=== PATIENT | male | born 1965 | race Caucasian/White ===

== ENCOUNTER 2024-04-17 12:47 | Emergency (ER) | payer BC, SELFPAY ==
[2024-04-17 12:54] VITALS: BP 130/95
[2024-04-17 13:14] LABS: % Basophils 0.5 % (0-2); % Eosinophils 0.8 % (0-6); % Immature Granulocytes 0.1 % (0-0.5); % Lymphocytes 28.4 % (20.5-51.1); % Monocytes 4.5 % (1.7-9.3); % Neutrophils 65.7 % (42.2-75.2); Absolute Eosinophils 0.1 10^3/uL (0-0.7); Absolute Lymphocytes 2.4 10^3/uL (1.2-3.4); Absolute Monocytes 0.4 10^3/uL (0.1-0.6); Absolute Neutrophils 5.5 10^3/uL (1.4-6.5); Hematocrit 43.6 % (39.0-52.0); Hemoglobin 15.2 g/dL (13.0-18.0); Mean Corp Hgb Conc. 34.9 g/dL (33.0-37.0); Mean Corpuscular Hgb 31.3 pg (27.0-31.0); Mean Corpuscular Volume 89.9 fL (80.0-94.0); Mean Platelet Volume 9.7 fL (7.4-10.4); Nucleated Red Blood Cells % 0 % (-); Platelet Count 283 10^3/uL (130-400); Red Blood Cell Count 4.85 10^6/uL (4.70-6.10); Red Cell Dist. Width 12.2 % (11.5-14.5); White Blood Cell Count 8.4 10^3/uL (4.8-10.8)
[2024-04-17 13:28] LABS: ALT (SGPT) 24 U/L (0-50); AST (SGOT) 26 U/L (17-59); Albumin 4.7 g/dl (3.5-5.0); Alkaline Phosphatase 60 U/L (38-126); Blood Urea Nitrogen 17 mg/dl (9-20); Calcium 9.1 mg/dl (8.4-10.2); Carbon Dioxide 27 mmol/L (22-30); Chloride 101 mmol/L (98-107); Glucose 145 mg/dl (70-99); Potassium 3.7 mmol/L (3.5-5.1); Sodium 137 mmol/L (135-145); Total Bilirubin 0.9 mg/dl (0.2-1.3); Total Protein 7.3 g/dl (6.3-8.2); eGFR > 60.00
[2024-04-17 13:38] LABS: Troponin I < 0.012 ng/ml
[2024-04-17 17:13] VITALS: BMI 25.7
[2024-04-17 17:16] VITALS: BP 116/69
--- NOTE | 2024-04-21 12:09 | ED.GENMED ---
History of Present Illness
General
Chief Complaint: Chest Pain
Source: patient
Exam Limitations: none
Time Seen by Provider: 04/17/24 17:13
Nursing documentation reviewed up to this point in time: agreed with
History of Present Illness
History of Present Illness:
This is a 58-year-old male who presents emergency department today with concerns of chest pain starting a week ago. Patient states that he has had generalized cold and flulike symptoms for the past week and states that they are generally getting
better but he did note a persistent cough. He feels like the pain started after fits of coughing. He notes that some positions elicit palpable spasm over the chest wall. He has no associated shortness of breath. He feels like he notices the pain
more when he is sitting forward. He states that it comes and goes and is not constant. It is not exertional. He is no family history of cardiac disease. He has no personal history of cardiac disease. He denies any dizziness or lightheadedness.
He does not take any medications daily.
Review of Systems
Review of Systems
All Other Systems: ROS reviewed and negative except as documented in HPI and ROS
Phy Exam
Physical Exam
Physical Exam:
General: Patient is well appearing and in no acute distress; non-toxic
Skin: Warm and dry, no rashes or lesions
Head: Normocephalic, atraumatic
Eyes: Sclera non-icteric. EOMs intact.
Cardiac: Regular rate and rhythm, no murmurs, no tenderness to palpation of the external chest wall
Peripheral Vascular: No lower extremity swelling or edema, 2+ radial pulses bilaterally
Pulm: Normal respiratory effort, no wheezes, rales, or rhonchi
Musculoskeletal: No chest pain with range of motion of bilateral upper extremities. 5/5 strength of bilateral upper extremities.
Neuro: CN II-XII intact, no focal neurologic deficits.
Psychiatric: Appropriate mood and affect.
Scores
Heart Score for Chest Pain Patients
STEMI patient?: No
History: Slightly or Non-Suspicious
ECG: Normal
Age: >45 - <65 years
Risk Factors: No Risk Factors
Troponin: </= Normal Limit
Heart Score for Chest Pain Patients: 1
Heart Score Risk: 2.5% MACE over next 6 weeks
Course
Orders/Labs/Results
Orders:
Orders
04/17/24 12:48
Electrocardiogram (*1) Urgent
Reason for Study: Chest Pain
EKG- Treatment ONCE
04/17/24 13:02
Complete Blood Count/With Diff Urgent
Comprehensive Metabolic Panel Urgent
Troponin I Urgent
04/17/24 13:26
CR Chest - 2 Views Urgent
Comment:
Reason For Exam: CP
Abnormal Lab Results
04/17/24
13:02
MCH 31.3 H pg
(27.0-31.0)
Glucose 145 H mg/dl
(70-99)
04/17/24 13:02
04/17/24 13:02
Vital Signs
Initial and Last Documented VS:
Initial Vital Signs
Temp Pulse Resp BP Pulse Ox
98.3 F 80 16 130/95 98
04/17/24 12:54 04/17/24 12:54 04/17/24 12:54 04/17/24 12:54 04/17/24 12:54
Last Documented Vital Signs
Temp Pulse Resp BP Pulse Ox
98.3 F 70 17 116/69 96
04/17/24 12:54 04/17/24 17:45 04/17/24 17:45 04/17/24 17:16 04/17/24 17:45
MDM/Problems Addressed
Differential Diagnosis Includes:
chest wall strain, ACS, pericarditis, myocarditis, costochondritis, pneumonia
MDM/Problems Addressed:
58-year-old male with no past medical history presents to the emergency department today with concerns of atypical chest pain. The pain will come and go at random. It is non-positional, non-pleuritic. It resolved in the emergency department without
intervention. His EKG shows sinus rhythm with PACs no ischemia troponin undetectable. CBC and CMP unremarkable. CXR shows no evidence of active cardiopulmonary disease. Suspect possible pericarditis vs chest wall strain from coughing fits.
Recommended cardiology follow up and ibuprofen as needed for pain. Patient stable for discharge
Chronic conditions affecting care:
n/a
Acute Exacerbation and/or Progression of Chronic Illness:
n/a
*Pulse Oximetry
Patient hypoxic: no
*EKG
Interpreted by ED Provider?: Yes
EKG Intrepretation Date: 04/21/24
Interpretation: normal
Comparison EKG: no comparison EKG present
Heart Rate: 73
Rate: normal
Rhythm: sinus
QRS Pattern: normal QRS
*Critical Care Note
Total Time (30-74mins, 75-104mins- exclusive of procedures): Not Applicable
Data Reviewed
Review of Other/Old Records Reveals: Records (No previous ER physician documentation to review, no discharge summaries)
Source: patient and records
Patient Management
Escalation/DeEscalation of care consider admission/obs:
case reviewed with my attending
patient stable for discharge
ED Attending Note
-
Portions of this chart may have been created with voice recognition software.� Occasional wrong word or��sound alike� substitutions may have occurred due to the inherent limitations of voice recognition software.
Discharge Plan
Departure
Patient Disposition: Home (Routine Discharge)
Date of Disposition: 04/17/24
Time of Disposition: 17:35
Patient with high blood pressure during this ER visit?: Yes
Condition: Good
Discharge Problem:
Atypical chest pain
Instructions: Chest pain, BLOOD PRESSURE
Referrals:
Nathan Goldberg MD [Active] - Call in 1-3 days for appt
Activity Restrictions/Additional Instructions:
Please call the attached number to schedule an appointment with cardiology.
Please follow up with your primary care provider.
Your EKG demonstrates sinus rhythm with no concerning findings. Your troponin blood test was undetectable. Your chest x-ray was normal.
PLEASE RETURN TO THE EMERGENCY DEPARTMENT SHOULD YOU EXPERIENCE AN ACUTE WORSENING OF YOUR SYMPTOMS, SHORTNESS OF BREATH, NECK PAIN, DIZZINESS, WEAKNESS IN ONE-SIDED BODY VERSUS OTHER, SYNCOPAL EPISODES, OR ANY OTHER SIGNS OR SYMPTOMS WORRISOME TO
YOU.
Interventions
Interventions:
*Risk Screen - Suicide Last Done: 04/17/24 12:54
*General Assessment Last Done: 04/17/24 17:13
*Neglect/Abuse Screening Last Done: 04/17/24 12:54
ED- Fall Risk Assessment Last Done: 04/17/24 17:13
*ED COVID-19 Vaccine History Last Done: 04/17/24 17:13
*Nursing Disposition Last Done: 04/17/24 17:59
ED- Cardiac Assessment Last Done: 04/17/24 17:19
Discharge Date and Time
Discharge Date/Time: 04/17/24 18:00
Print Language: ESTONIAN
== END 2024-04-17 18:00 | disposition home or self-care (01) ==
LOC: EMR 12:47
PROVIDERS: Emergency Medicine; EMERGENCY PHYSICIAN Student in an Organized Health Care Education/Training Program
DX: R07.89 Other chest pain (principal)
CPT/HCPCS: 99283; 71046; 80053; 84484; 85025; 93005